=== PATIENT | female | born 1935 | race Caucasian/White ===

== ENCOUNTER 2016-04-07 12:05 | Inpatient (IN) | payer MEDICARE, OTHER ==
[~2016-04-07] VITALS: Ht 165.1 cm; Wt 81.6 kg
[~2016-04-07 12:05] MED LIST: ATIVAN0.5 MG ORAL; UNOBMED
[2016-04-07] MEDS ORDERED: JANUVIA25 MG ORAL (12:27)
[2016-04-07] MEDS ORDERED: NEURONTIN100 MG ORAL (12:27)
[2016-04-07] MEDS ORDERED: ASPIR 8181 MG ORAL (12:27)
[2016-04-07] MEDS ORDERED: DEPAKOTE250 MG PO (12:27)
[2016-04-07] MEDS ORDERED: AMARYL1 MG ORAL (12:27)
[2016-04-07] MEDS ORDERED: LOTENSIN HCT 21 EAC3 PO (12:27)
[2016-04-07] MEDS ORDERED: ARICEPT10 MG ORAL (12:27)
[2016-04-07] MEDS ORDERED: ASPERCREME 1035.4 GM TP (12:27)
[2016-04-07 12:36] VITALS: BP 132/37
[2016-04-07 12:44] LABS: EOSINOPHILS % (AUTO) 2.7 % (0.0-3.0); LYMPHOCYTES % (AUTO) 16.3 % (20.0-45.0); MEAN CORPUSCULAR HEMOGLOBIN 30.2 PG (27.0-31.0); MEAN CORPUSCULAR HGB CONC 32.5 G/DL (32.0-36.0); MEAN CORPUSCULAR VOLUME 93 FL (80-99); MEAN PLATELET VOLUME 6.8 FL (6.5-10.1); MONOCYTES % (AUTO) 8.2 % (1.0-10.0); NEUTROPHILS % (AUTO) 71.9 % (45.0-75.0); PLATELET COUNT 157 K/UL (150-450); RED BLOOD COUNT 3.78 M/UL (4.20-5.40); RED CELL DISTRIBUTION WIDTH 13.2 % (11.6-14.8)
[2016-04-07 13:03] LABS: TROPONIN I < 0.30 ng/mL (<=0.30)
[2016-04-07 13:04] LABS: ALANINE AMINOTRANSFERASE 13 U/L (3-33); ALBUMIN/GLOBULIN RATIO 1.1 (1.0-2.7); ANION GAP 13 (5-15); ASPARTATE AMINO TRANSFERASE 18 U/L (5-40); CALCIUM 9.8 mg/dL (8.6-10.2); CARBON DIOXIDE 24 mEQ/L (20-30); CHLORIDE 94 mEQ/L (98-107); CREATININE 1.8 mg/dL (0.5-0.9); HEMOLYSIS 12; SODIUM 131 mEQ/L (135-145); TOTAL PROTEIN 7.4 g/dL (6.6-8.7)
[2016-04-07 13:06] LABS: POTASSIUM 6.2 mEQ/L (3.4-4.9)
[2016-04-07 13:14] LABS: CKMB 3.7 ng/mL (< 3.8)
--- NOTE | 2016-04-07 13:29 | Diagnostic Imaging Report ---
Indication: Dyspnea Comparison: 05/09/15 A single view chest radiograph was obtained. Findings: The heart is enlarged. Lungs are clear. Bones are osteopenic. Impression: No acute disease
[2016-04-07] MEDS ORDERED: SYNTHROID25 MCG ORAL (13:30)
[2016-04-07] MEDS ORDERED: LANTUS SOL100 UNIT/1 SUBQ ×2 (13:30)
[2016-04-07] MEDS ORDERED: VITAMIN D400 INTLU ORAL (13:30)
[2016-04-07] MEDS ORDERED: MULTIVITAMINS1 EAC2 ORAL (13:30)
[2016-04-07] MEDS ORDERED: SIMVASTATIN20 MG ORAL (13:30)
[2016-04-07] MEDS ORDERED: NAMENDA5 MG ORAL (13:30)
[2016-04-07] MEDS ORDERED: ACTOS15 MG ORAL (13:30)
[2016-04-07] MEDS ORDERED: KENALOG 0.025%15 GM APPLIC (13:30)
[2016-04-07] MEDS ORDERED: BACTRIM DOUBLE S1 E1 ORAL (13:30)
[2016-04-07] MEDS ORDERED: Calcium Gluconate 1gm/10ml vial IVP ONE (14:00)
[2016-04-07] MEDS ORDERED: Sodium Polystyrene Sulfonate 15gm Powder ORAL ONE (14:00)
[2016-04-07 14:16] VITALS: BP 168/59
[2016-04-07 15:12] VITALS: BP 130/58
[2016-04-07 16:49] VITALS: BP 133/61
[2016-04-07 18:12] VITALS: BP 159/48
[2016-04-07 20:00] VITALS: BP 147/63
[2016-04-07] MEDS ORDERED: LORazepam 0.5mg tab ORAL PRN (21:45)
[2016-04-07] MEDS ORDERED: LORazepam 0.5mg tab ORAL ONE (21:45)
--- NOTE | 2016-04-07 22:25 | Emergency Room Report ---
History of Present Illness General Chief Complaint: Generalized Weakness Source: EMS (ALLEN HERNANDEZ P.A.) Present Illness HPI The patient is an 80-year-old female with a history of Diabetes and dementia BIBA for generalized weakness. [facility] and was said to have had a decreased appetite for the past week. The patient denies any other symptoms including N, V, F, chills, TAN, dizziness, blurred vision, CP, SOB, abd pain (ALLEN HERNANDEZ P.A.) Allergies: Coded Allergies: No Known Allergies (Unverified , 05/09/15) Patient History Past Medical History: see triage record, DM, dementia Pertinent Family History: none Reviewed Nursing Documentation: PMH: Agreed, PSxH: Agreed (ALLEN HERNANDEZ.Nicholas) Nursing Documentation-PMH Past Medical History: No History, Except For Hx Diabetes: Yes History Of Psychiatric Problem: Yes - DEMENTIA (ALLEN HERNANDEZ.AStone) Review of Systems All Other Systems: negative except mentioned in HPI (ALLEN HERNANDEZ P.AStone) Physical Exam Vital Signs Date Time Temp Pulse Resp B/P Pulse Ox O2 Delivery O2 Flow Rate FiO2 04/07/16 12:06 98.8 53 18 132/37 99 Room Air Sp02 EP Interpretation: reviewed, normal General Appearance: no apparent distress, alert, GCS 15, non-toxic Head: normocephalic, atraumatic Eyes: bilateral eye PERRL, bilateral eye normal inspection ENT: hearing grossly normal, normal pharynx, no angioedema, normal voice Neck: full range of motion, supple/symm/no masses Respiratory: chest non-tender, lungs clear, normal breath sounds, no wheezing, speaking full sentences Cardiovascular #1: regular rate, rhythm, no edema Gastrointestinal: normal bowel sounds, non tender, soft, no mass, non-distended , no guarding, no rebound Rectal: deferred Genitourinary: normal inspection, no CVA tenderness Musculoskeletal: normal inspection, back normal, non-tender Neurologic: alert, responsive, motor strength/tone normal, sensory intact, speech normal Psychiatric: mood/affect normal, no delusions (ALLEN HERNANDEZ P.AStone) Medical Decision Making PA Attestation Dr. Pretty is my supervising physician. Patient management was discussed with my supervising physician (ALLEN HERNANDEZ) Diagnostic Impression: Primary Impression: General weakness Additional Impressions: Hyperkalemia Dehydration ER Course The patient is an 80-year-old female with a history of Diabetes and dementia presenting for generalized weakness DDx: anxiety disorder, dehydration, PNA, Protein calorie malnutrition PE: Bradycardic and hypertensive. Afebrile. NAD Abdomen: Normal appearance. Non distended. No ecchymosis. Normal BS. Non TTP. No McBurney point tenderness. No guarding. No CVA tenderness Lungs CTA bilat Labs: CBC unremarkable. No leukocytosis CMP: Hyperkalemia at 6.2 Cardiac markers negative. Mild hyponatremia. BUN/CR elevated CXR unremarkable. EKG shows peaked T waves. Pt given treatment for hyperkalemia and is given IV fluids. The patient will be admitted in stable condition. Dr. Pretty has spoken with the admitting physician. Laboratory Tests Test 04/07/16 12:32 White Blood Count 8.0 K/UL (4.8-10.8) Red Blood Count 3.78 M/UL (4.20-5.40) L Hemoglobin 11.4 G/DL (12.0-16.0) L Hematocrit 35.1 % (37.0-47.0) L Mean Corpuscular Volume 93 FL (80-99) Mean Corpuscular Hemoglobin 30.2 PG (27.0-31.0) Mean Corpuscular Hemoglobin Concent 32.5 G/DL (32.0-36.0) Red Cell Distribution Width 13.2 % (11.6-14.8) Platelet Count 157 K/UL (150-450) Mean Platelet Volume 6.8 FL (6.5-10.1) Neutrophils (%) (Auto) 71.9 % (45.0-75.0) Lymphocytes (%) (Auto) 16.3 % (20.0-45.0) L Monocytes (%) (Auto) 8.2 % (1.0-10.0) Eosinophils (%) (Auto) 2.7 % (0.0-3.0) Basophils (%) (Auto) 1.0 % (0.0-2.0) Sodium Level 131 mEQ/L (135-145) L Potassium Level 6.2 mEQ/L (3.4-4.9) *H Chloride Level 94 mEQ/L (98-107) L Carbon Dioxide Level 24 mEQ/L (20-30) Anion Gap 13 (5-15) Blood Urea Nitrogen 31 mg/dL (7-23) H Creatinine 1.8 mg/dL (0.5-0.9) H Estimate Glomerular Filtration Rate mL/min (>60) Glucose Level 139 mg/dL (74-106) H Calcium Level 9.8 mg/dL (8.6-10.2) Total Bilirubin < 0.2 mg/dL (0.0-1.2) Aspartate Amino Transferase (AST) 18 U/L (5-40) Alanine Aminotransferase (ALT) 13 U/L (3-33) Alkaline Phosphatase 72 U/L (35-104) Total Creatine Kinase 97 U/L (26-140) Creatine Kinase MB 3.7 ng/mL (< 3.8) Creatine Kinase MB Relative Index 3.8 Troponin I < 0.30 ng/mL (<=0.30) Total Protein 7.4 g/dL (6.6-8.7) Albumin 3.9 g/dL (3.5-5.2) Globulin 3.5 g/dL Albumin/Globulin Ratio 1.1 (1.0-2.7) Lab Results Impression CBC unremarkable. No leukocytosis CMP: Hyperkalemia at 6.2 Mild hyponatremia. BUN/CR elevated (ALLEN HERNANDEZ P.A.) ER Course I agree with the above report. I directed treatment for hyperkalemia. I discussed the patient with Dr. Morris who agreed with admission. Scribe documentation reviewed by me and is accurate (Kenyon Pretty M.D.) EKG Diagnostic Results Rate: bradycardiac - 513 Rhythm: NSR ST Segments: other - Peaked T waves ASA given to the pt in ED: No PA Scribe Text EKG was reviewed and read with my supervising physician. No acute ST segment changes are seen. Bradycardia. Peaked T waves (ALLEN HERNANDEZ P.A.) Rhythm Strip Diag. Results EP Interpretation: yes Rhythm: NSR, no PVC's, no ectopy (Kenyon Pretty M.D.) Chest X-Ray Diagnostic Results EP Interpretation: Yes Findings: no consolidation, no effusion, no pneumothorax Number of Views: 1 PA Scribe Text I am acting as scribe for my supervising physician. My supervising physician's interpretation of the chest xrays are there is no consolidation, no effusion, no acute cardiopulmonary disease, no pneumothorax (ALLEN HERNANDEZ) Last Vital Signs Date Time Temp Pulse Resp B/P Pulse Ox O2 Delivery O2 Flow Rate FiO2 04/07/16 20:00 98.1 62 20 147/63 96 Room Air Status: improved (ALLEN HERNANDEZ) Status: improved (Kenyon Pretty M.D.) Disposition: ADMITTED INPATIENT Condition: Serious Scripts Ertapenem Sodium* (INVanz*) 1 Gm Vial.port 1 GM IVPB Q24H for 6 Days, #6 VIAL Prov: KASSY MORRIS 04/10/16 Heparin Sod (Porcine) (HEPARIN SODIUM*) 5 000/1 Ml Vial 5000 UNITS SUBQ EVERY 12 HOURS for 14 Days, #28 VIAL Prov: KASSY MORRIS 04/10/16 Amlodipine Besylate (Norvasc) 5 Mg Tablet 5 MG ORAL DAILY Y, #30 TAB Prov: KASSY MORRIS 04/10/16 Referrals: KASSY MORRIS (PCP) ALLEN HERNANDEZ Apr 07, 2016 22:24 Kenyon Pretty M.D. Apr 12, 2016 07:08
[2016-04-07] MEDS: Heparin 5000 units/ml inj SUBQ SCH (23:00)
--- NOTE | 2016-04-08 01:37 | History and Physical Report ---
DATE OF ADMISSION: 04/07/2016 CHIEF COMPLAINT: Generalized weakness. HISTORY OF PRESENT ILLNESS: This is an 80-year-old, obese female with history of diabetes and dementia, who was brought in by paramedics for complaint of progressive generalized weakness for the past two weeks. The patient has been more drowsy for the past two days as well. No fever or chills. No history of shortness of breath or chest pain. No history of abdominal pain, nausea or vomiting. PAST MEDICAL HISTORY: Includes history of diabetic neuropathy, diabetes mellitus type 2 on insulin , depression, morbid obesity, insomnia, and history of recurrent UTIs, Alzhiemer's disease, hypothyroidism, hyerlipidemia. PAST SURGICAL HISTORY: None. ALLERGIES: No known drug allergies. SOCIAL HISTORY: The patient lives at the [facility]. no history of smoking, drug, or alcohol use. REVIEW OF SYSTEMS: Negative except for history of present illness. PHYSICAL EXAMINATION: VITAL SIGNS: Temperature 98.8 degrees, pulse 63, respiration 18, blood pressure 132/37, and pulse oximetry 99% on room air. GENERAL APPEARANCE: No apparent distress. Alert . HEENT: Normocephalic and normochromic. Extraocular muscles intact. Throat is clear. No exudate. NECK: Supple. No lymphadenopathy. Thyroid normal size. RESPIRATORY: Clear to auscultation bilaterally. No wheezing. No rales. CARDIOVASCULAR: Regular rate and rhythm. Normal S1 and S2. No murmur. No gallop. GASTROINTESTINAL: Soft, nontender, and nondistended. Positive bowel sounds. Central obesity. No rebound or guarding. GENITOURINARY: No CVA tenderness. EXTREMITIES: No edema, cyanosis, or clubbing. NEUROLOGIC: Alert and responds to commands. No motor or sensory deficits. Slight weakness of the lower extremity. LABORATORY AND DIAGNOSTIC DATA: Includes WBC 8.2, hemoglobin 11.4, hematocrit 35.1, platelet count 157,000, neutrophils 71, lymphocytes 16%, monos 8%, eosinophils 2.7, and basophils 1. Sodium 131, potassium 6.2, chloride 94, bicarb 24, BUN 31, creatinine 1.8, glucose 139. Calcium 9.8. AST 18, ALT 13, and alkaline phosphatase 72. Total CK 97. Troponin less than 0.3. Albumin 3.9. Chest x-ray was negative. EKG showed peaked T-waves. IMPRESSION: This is an 80-year-old obese female, who will be admitted for dehydration and hyperkalemia management. She will be started on IV Fluid. The patient also has a generalized weakness and will require few weeks of physical therapy at the rehab before going back to the assisted living. While in the hospital, her Diabetes will be optimized as well. She will be restarted on home medications and will be followed up in the morning. Eduardo Morris M.D. DR: Hero JOB#: [id number] CC: ATUL
[2016-04-08 05:19] VITALS: BP 118/52
[2016-04-08] MEDS: Levothyroxine 25mcg tab ORAL SCH (06:14)
[2016-04-08] MEDS: sitaGLIPtin 50mg tab ORAL SCH (06:14)
[2016-04-08] MEDS: Levemir Flexpen SUBQ SCH (06:15)
[2016-04-08 07:44] LABS: BASOPHILS % (AUTO) 1.5 % (0.0-2.0); EOSINOPHILS % (AUTO) 3.4 % (0.0-3.0); LYMPHOCYTES % (AUTO) 20.6 % (20.0-45.0); MEAN CORPUSCULAR HEMOGLOBIN 30.6 PG (27.0-31.0); MEAN CORPUSCULAR HGB CONC 33.1 G/DL (32.0-36.0); MEAN CORPUSCULAR VOLUME 92 FL (80-99); MEAN PLATELET VOLUME 7.1 FL (6.5-10.1); MONOCYTES % (AUTO) 11.6 % (1.0-10.0); NEUTROPHILS % (AUTO) 62.9 % (45.0-75.0); PLATELET COUNT 147 K/UL (150-450); RED CELL DISTRIBUTION WIDTH 13.2 % (11.6-14.8); WHITE BLOOD COUNT 5.9 K/UL (4.8-10.8)
[2016-04-08 08:02] VITALS: BP 142/67
[2016-04-08 08:10] LABS: ANION GAP 12 (5-15); CALCIUM 9.4 mg/dL (8.6-10.2); CARBON DIOXIDE 21 mEQ/L (20-30); CHLORIDE 101 mEQ/L (98-107); CREATININE 1.6 mg/dL (0.5-0.9); HEMOLYSIS 5; POTASSIUM 5.2 mEQ/L (3.4-4.9); SODIUM 134 mEQ/L (135-145)
[2016-04-08] MEDS: Benazepril 10mg tab ORAL SCH (08:36)
[2016-04-08] MEDS: Aspirin EC 81mg tab ORAL SCH (08:39)
[2016-04-08] MEDS: Bactrim SS Tab ORAL SCH (08:39)
[2016-04-08] MEDS: Heparin 5000 units/ml inj SUBQ SCH ×2 (08:40→21:00)
[2016-04-08] MEDS ORDERED: Influenza Virus Vaccine 0.5ml IM ONE (09:00)
[2016-04-08] MEDS ORDERED: Glimepiride 1mg tab ORAL SCH (09:00)
[2016-04-08] MEDS ORDERED: Pneumococcal Vaccine 25mcg/0.5ml IM ONE (09:00)
--- NOTE | 2016-04-08 09:14 | General Progress Note ---
Assessment/Plan Status: stable Assessment/Plan 1. Dehydration - improving. cont IVF. 2. Hyperkalemia - Improving as well. 3. DM II - cont Insulin and decrease Amaryl 1 mg daily due to low glucose of 60 in am. 4. Generalized weakness - PT/OT eval and txt. will consider transfer to rehab in 2-3 days. 5. Hypothyroidism - cont synthroid. 6. Alzhiemer's dx - cont Namenda 28 mg daily 7. Hyperlipidemia - cont home med. Subjective Date patient seen: Apr 08, 2016 Time patient seen: 09:00 Constitutional: Reports: no symptoms HEENT: Reports: no symptoms Cardiovascular: Reports: no symptoms Respiratory: Reports: no symptoms Gastrointestinal/Abdominal: Reports: no symptoms Genitourinary: Reports: no symptoms Neurologic/Psychiatric: Reports: no symptoms Endocrine: Reports: no symptoms Hematologic/Lymphatic: Reports: no symptoms Allergies: Coded Allergies: No Known Allergies (Unverified , 05/09/15) Subjective Pt is resting in bed. no complaints today. awake. afebrile. No sob or chest pain. Objective Last 24 Hour Vital Signs Date Time Temp Pulse Resp B/P Pulse Ox O2 Delivery O2 Flow Rate FiO2 04/08/16 08:36 142/67 04/08/16 08:02 98.2 60 18 142/67 94 Room Air 04/08/16 05:19 97.9 52 20 118/52 98 Room Air 04/08/16 04:00 48 04/07/16 20:00 98.1 62 20 147/63 96 Room Air 04/07/16 19:15 98.9 64 16 159/48 100 Room Air 04/07/16 18:12 98.9 64 16 159/48 100 Room Air 04/07/16 16:49 98.8 61 18 133/61 100 Room Air 04/07/16 15:12 98.8 60 23 130/58 100 Room Air 04/07/16 14:16 98.8 54 15 168/59 100 Room Air 04/07/16 12:36 98.8 78 18 132/37 99 Room Air 04/07/16 12:06 98.8 53 18 132/37 99 Room Air Intake and Output 04/07/16 04/08/16 19:00 07:00 Intake Total 120 ml 450 ml Balance 120 ml 450 ml Intake Oral 120 ml 100 ml IV Total 350 ml # Voids 3 # Bowel Movements 2 Laboratory Tests 04/07/16 12:32: White Blood Count 8.0, Red Blood Count 3.78L, Hemoglobin 11.4L, Hematocrit 35.1L , Mean Corpuscular Volume 93, Mean Corpuscular Hemoglobin 30.2, Mean Corpuscular Hemoglobin Concent 32.5, Red Cell Distribution Width 13.2, Platelet Count 157, Mean Platelet Volume 6.8, Neutrophils (%) (Auto) 71.9, Lymphocytes (% ) (Auto) 16.3L, Monocytes (%) (Auto) 8.2, Eosinophils (%) (Auto) 2.7, Basophils (%) (Auto) 1.0, Sodium Level 131L, Potassium Level 6.2*H, Chloride Level 94L, Carbon Dioxide Level 24, Anion Gap 13, Blood Urea Nitrogen 31H, Creatinine 1.8H , Estimat Glomerular Filtration Rate , Glucose Level 139H, Calcium Level 9.8, Total Bilirubin < 0.2, Aspartate Amino Transf (AST/SGOT) 18, Alanine Aminotransferase (ALT/SGPT) 13, Alkaline Phosphatase 72, Total Creatine Kinase 97, Creatine Kinase MB 3.7, Creatine Kinase MB Relative Index 3.8, Troponin I < 0.30, Total Protein 7.4, Albumin 3.9, Globulin 3.5, Albumin/Globulin Ratio 1.1 04/08/16 07:00: White Blood Count 5.9, Red Blood Count 3.50L, Hemoglobin 10.7L, Hematocrit 32.3L , Mean Corpuscular Volume 92, Mean Corpuscular Hemoglobin 30.6, Mean Corpuscular Hemoglobin Concent 33.1, Red Cell Distribution Width 13.2, Platelet Count 147L, Mean Platelet Volume 7.1, Neutrophils (%) (Auto) 62.9, Lymphocytes ( %) (Auto) 20.6, Monocytes (%) (Auto) 11.6H, Eosinophils (%) (Auto) 3.4H, Basophils (%) (Auto) 1.5, Sodium Level 134L, Potassium Level 5.2H, Chloride Level 101, Carbon Dioxide Level 21, Anion Gap 12, Blood Urea Nitrogen 27H, Creatinine 1.6H, Estimat Glomerular Filtration Rate , Glucose Level 85, Calcium Level 9.4 Height (Feet): 5 Height (Inches): 5.00 Weight (Pounds): 180 General Appearance: no apparent distress, alert EENT: normal ENT inspection Neck: non-tender, normal alignment, supple Cardiovascular: normal peripheral pulses, normal rate, regular rhythm Respiratory/Chest: chest wall non-tender, lungs clear, normal breath sounds Abdomen: normal bowel sounds, non tender, soft Extremities: normal range of motion, non-tender Edema: no edema noted Arm (L), no edema noted Arm (R), no edema noted Leg (L), no edema noted Leg (R), no edema noted Pedal (L), no edema noted Pedal (R), no edema noted Generalized Neurologic: alert, oriented x 3, responsive Skin: warm/dry Lymphatic: normal anterior cervical (L), normal anterior cervical (R), normal axillary (L), normal axillary (R), normal inguinal (L), normal inguinal (R), normal other, normal posterior cervical (L), normal posterior cervical (R), normal submandibular (L), normal submandibular (R), normal supraclavicular (L), normal supraclavicular (R) KASSY LYLES Apr 08, 2016 09:14
[2016-04-08 11:43] VITALS: BP 144/81
[2016-04-08 14:45] LABS: APPEARANCE,URINE CLEAR; KETONES,URINE NEGATIVE (NEGATIVE); LEUKOCYTE ESTERASE ,URINE 1+ (NEGATIVE); NITRITE,URINE NEGATIVE (NEGATIVE); PH,URINE 7 (4.5-8.0); PROTEIN,URINE 3+ (NEGATIVE); UROBILINOGEN,URINE NORMAL MG/DL (0.0-1.0)
[2016-04-08 14:58] LABS: BACTERIA,URINE FEW /HPF; SQUAMOUS EPITHELIAL CELL,UR FEW /LPF (NONE/OCC)
--- NOTE | 2016-04-08 15:43 | Cardiac Electrophysiology PN ---
Subjective Subjective 177221 Objective Last 24 Hour Vital Signs Date Time Temp Pulse Resp B/P Pulse Ox O2 Delivery O2 Flow Rate FiO2 04/08/16 12:00 48 04/08/16 11:43 98.4 60 18 144/81 100 Room Air 04/08/16 09:37 98.2 04/08/16 08:36 142/67 04/08/16 08:02 98.2 60 18 142/67 94 Room Air 04/08/16 08:00 59 04/08/16 05:19 97.9 52 20 118/52 98 Room Air 04/08/16 04:00 48 04/07/16 20:00 98.1 62 20 147/63 96 Room Air 04/07/16 19:15 98.9 64 16 159/48 100 Room Air 04/07/16 18:12 98.9 64 16 159/48 100 Room Air 04/07/16 16:49 98.8 61 18 133/61 100 Room Air Intake and Output 04/07/16 04/08/16 19:00 07:00 Intake Total 120 ml 500 ml Balance 120 ml 500 ml Intake Oral 120 ml 100 ml IV Total 400 ml # Voids 3 # Bowel Movements 2 Laboratory Tests Test 04/08/16 07:00 04/08/16 14:15 White Blood Count 5.9 K/UL (4.8-10.8) Red Blood Count 3.50 M/UL (4.20-5.40) L Hemoglobin 10.7 G/DL (12.0-16.0) L Hematocrit 32.3 % (37.0-47.0) L Mean Corpuscular Volume 92 FL (80-99) Mean Corpuscular Hemoglobin 30.6 PG (27.0-31.0) Mean Corpuscular Hemoglobin Concent 33.1 G/DL (32.0-36.0) Red Cell Distribution Width 13.2 % (11.6-14.8) Platelet Count 147 K/UL (150-450) L Mean Platelet Volume 7.1 FL (6.5-10.1) Neutrophils (%) (Auto) 62.9 % (45.0-75.0) Lymphocytes (%) (Auto) 20.6 % (20.0-45.0) Monocytes (%) (Auto) 11.6 % (1.0-10.0) H Eosinophils (%) (Auto) 3.4 % (0.0-3.0) H Basophils (%) (Auto) 1.5 % (0.0-2.0) Sodium Level 134 mEQ/L (135-145) L Potassium Level 5.2 mEQ/L (3.4-4.9) H Chloride Level 101 mEQ/L (98-107) Carbon Dioxide Level 21 mEQ/L (20-30) Anion Gap 12 (5-15) Blood Urea Nitrogen 27 mg/dL (7-23) H Creatinine 1.6 mg/dL (0.5-0.9) H Estimat Glomerular Filtration Rate mL/min (>60) Glucose Level 85 mg/dL (74-106) Calcium Level 9.4 mg/dL (8.6-10.2) Urine Color Yellow Urine Appearance Clear Urine pH 7 (4.5-8.0) Urine Specific [place] 1.005 (1.005-1.035) Urine Protein 3+ (NEGATIVE) H Urine Glucose (UA) Negative (NEGATIVE) Urine Ketones Negative (NEGATIVE) Urine Occult Blood 4+ (NEGATIVE) H Urine Nitrite Negative (NEGATIVE) Urine Bilirubin Negative (NEGATIVE) Urine Urobilinogen Normal MG/DL (0.0-1.0) Urine Leukocyte Esterase 1+ (NEGATIVE) H Urine RBC 5-10 /HPF (0 - 2) H Urine WBC 2-4 /HPF (0 - 2) Urine Squamous Epithelial Cells Few /LPF (NONE/OCC) Urine Bacteria Few /HPF (NONE) PATRICK GRUBER Apr 08, 2016 15:43
[2016-04-08 16:00] VITALS: BP 171/61
[2016-04-08] MEDS ORDERED: LORazepam 0.5mg tab ORAL PRN (18:00)
[2016-04-08 20:00] VITALS: BP 129/46
[2016-04-08] MEDS ORDERED: Levemir Flexpen SUBQ SCH (21:00)
[2016-04-08] MEDS: Memantine 10mg tab ORAL SCH (21:53)
--- NOTE | 2016-04-08 22:47 | Consultation ---
DATE OF CONSULTATION: 04/08/2016 REFERRING PHYSICIAN: Eduardo Morris M.D. REASON FOR CONSULTATION: Bradycardia. HISTORY OF PRESENT ILLNESS: The patient is an 80-year-old, obese lady with history of diabetes and dementia who was brought in for evaluation for generalized weakness of two weeks' duration. The patient also has been more drowsy in the last few days. The patient was admitted to telemetry and was found to have bradycardia with heart rate mostly in the 50s. Cardiology consultation was obtained for further evaluation and management. Upon my evaluation, the patient complains of generalized weakness with no other specific symptoms. She denies syncope or chest pain or shortness of breath. REVIEW OF SYSTEMS: Review of systems was thoroughly performed and was negative other than what was mentioned in the history of present illness PAST MEDICAL HISTORY: 1. Hypertension. 2. Diabetes. 3. Diabetic neuropathy. 4. Hyperlipidemia. 5. Morbid obesity. 6. Urinary tract infection. 7. Dementia. 8. Hypothyroidism. PAST SURGICAL HISTORY: Negative. ALLERGIES: She has no known drug allergies. SOCIAL HISTORY: She lives in assisted living. Does not smoke or drink alcohol. PHYSICAL EXAMINATION: VITAL SIGNS: Blood pressure is 144/81, pulse is 48, respirations 18, and she is afebrile. HEAD AND NECK: No JVD or carotid bruit. LUNGS: Clear. CARDIOVASCULAR: Regular S1 and S2 with no gallop or murmur. ABDOMEN: Soft. EXTREMITIES: No pitting edema. LABORATORY DATA: Labs show white count of 5.9, hemoglobin 10.7, hematocrit 32, and platelet count of 147,000. Chemistry shows sodium 134; potassium was initially 6.2, with subsequent one today is 5.2; BUN of 27; creatinine 1.6; and glucose of 85. Troponin is negative. Her EKG showed sinus bradycardia at a rate of 59. ASSESSMENT AND PLAN: 1. Bradycardia. It could be secondary to the patient's hyperkalemia. There is no evidence of heart block. Heart rates ranging between 40s and high 50s, and the patient's blood pressure has remained stable. The patient is off any sort of jorge blocking agents. Continue to monitor the patient on telemetry. Her thyroid function test will be re-evaluated. We will also get an echocardiogram to rule out for ejection fraction and wall motion abnormality. 2. Diabetes, on Amaryl and Levemir insulin. 3. Hyperlipidemia, on Lipitor. 4. Dementia, on Namenda. 5. Obesity. Thank very much, Dr. Morris for allowing me to participate in the care of this patient. Please do not hesitate to contact me for any questions regarding my evaluation. Marco Chambers M.D. DR: GOSIA JOB#: [id number] CC:
[2016-04-09] VITALS (7 sets, daily range): BP systolic 130–163; BP diastolic 65–79
[2016-04-09] MEDS: sitaGLIPtin 50mg tab ORAL SCH (06:14)
[2016-04-09] MEDS: Levemir Flexpen SUBQ SCH (06:15)
[2016-04-09] MEDS ORDERED: Glimepiride 1mg tab ORAL SCH (06:30)
[2016-04-09] MEDS: Levothyroxine 25mcg tab ORAL SCH (06:58)
[2016-04-09 08:18] LABS: TROPONIN I < 0.30 ng/mL (<=0.30)
[2016-04-09 08:36] LABS: ANION GAP 13 (5-15); CALCIUM 9.7 mg/dL (8.6-10.2); CARBON DIOXIDE 24 mEQ/L (20-30); CHLORIDE 100 mEQ/L (98-107); CREATININE 1.7 mg/dL (0.5-0.9); HEMOLYSIS 3; POTASSIUM 4.9 mEQ/L (3.4-4.9); SODIUM 137 mEQ/L (135-145)
[2016-04-09 08:58] LABS: BASOPHILS % (AUTO) 1.2 % (0.0-2.0); EOSINOPHILS % (AUTO) 3.5 % (0.0-3.0); LYMPHOCYTES % (AUTO) 17.3 % (20.0-45.0); MEAN CORPUSCULAR HEMOGLOBIN 30.2 PG (27.0-31.0); MEAN CORPUSCULAR HGB CONC 31.9 G/DL (32.0-36.0); MEAN CORPUSCULAR VOLUME 95 FL (80-99); MEAN PLATELET VOLUME 6.3 FL (6.5-10.1); PLATELET COUNT 138 K/UL (150-450); RED CELL DISTRIBUTION WIDTH 12.9 % (11.6-14.8); WHITE BLOOD COUNT 7.1 K/UL (4.8-10.8)
[2016-04-09] MEDS: Heparin 5000 units/ml inj SUBQ SCH ×2 (09:00→20:39)
[2016-04-09 09:27] LABS: HEMOGLOBIN A1C 6.6 % (< 6.0)
[2016-04-09] MEDS: Bactrim SS Tab ORAL SCH (09:28)
[2016-04-09] MEDS: Benazepril 10mg tab ORAL SCH (09:28)
[2016-04-09] MEDS: Memantine 10mg tab ORAL SCH ×2 (09:29→20:39)
[2016-04-09] MEDS: Aspirin EC 81mg tab ORAL SCH (09:29)
--- NOTE | 2016-04-09 10:51 | Wound Care Consultation ---
Wound Assessment Wound Assessment #1: Wound Number: #1 Wound Present on Admission: Yes New Wound: No Status Change of Wound: No Wound Location Body Site Modif: left Wound Location Body Site: heel Wound Type: pressure ulcer Jose Test: Does not Jose Pressure Ulcer Stage: IV/unstageable Wound Thickness: Full Thickness Wound Length: 1.0 Wound Width: 1.0 Wound Depth: UTD Percent of Wound Black/Brown: 100 Wound Drainage Amount: None Wound Drainage Odor: None/Absent Tissue Surrounding Wound: Callus surrounding wound. dry ,thick. Wound General Appearance: Necrotic Wound Assessment #2: Wound Number: #2 Wound Present on Admission: Yes New Wound: No Status Change of Wound: No Wound Location Body Site Modif: right, dorsal - aspect of foot. Wound Location Body Site: foot Wound Type: scab Jose Test: Does not Jose Wound Thickness: Full Thickness Wound Length: 1.0 Wound Width: 1.0 Wound Depth: utd Percent of Wound Bed Yellow/Wh: 100 - dry yellow scab Wound Drainage Amount: None Wound Drainage Odor: None/Absent Tissue Surrounding Wound: Erythemic Wound General Appearance: Reddened, Necrotic - yellow dry scab present to wound bed. Wound Assessment #3: Wound Number: #3 Wound Present on Admission: Yes New Wound: No Status Change of Wound: No Wound Location Body Site Modif: right, lower Wound Location Body Site: leg Wound Type: other - scratches multiple. Jose Test: Does not Jose Wound Thickness: Partial Thickness Wound Drainage Amount: None Wound Drainage Odor: None/Absent Tissue Surrounding Wound: Erythemic Wound General Appearance: Reddened, Open to air Wound Assessment #4: Wound Number: #4 Wound Present on Admission: Yes New Wound: No Status Change of Wound: No Wound Location Body Site Modif: left, lower Wound Location Body Site: leg Wound Type: other - Multiple Scratches Jose Test: Does not Jose Wound Thickness: Partial Thickness Wound Drainage Amount: None Wound Drainage Odor: None/Absent Tissue Surrounding Wound: Erythemic Wound General Appearance: Reddened, Open to air Wound Comment #1 Left Heel Pressure Ulcer Stage IV/Unstageable. #2 Right Dorsal Aspect of foot yellow scab. #3 Right Lower Extremity multiple scratches. #4 Left Lower Extremity multiple scratches. Recommendation. -FOLLOW UP WITH PODIATRY FOR FOOT WOUNDS. -APPLY LOW AIR LOSS OVERLAY MATTRESS. -Local wound care as ordered. -Optimize nutrition. -Offload feet and heels. -Apply heel protectors. -Turn and reposition. -Keep clean and dry. -Keep skin moisturized. -Assess and follow up with MD for any changes of condition noted. ADARSH SAMANIEGO Apr 09, 2016 10:51
--- NOTE | 2016-04-09 12:51 | General Progress Note ---
Assessment/Plan Status: stable Assessment/Plan 1. UTI - start Rocephin 1 gm IV daily x 5 days. 2. Lt heal Pressure ulcer stage IV - cont. wound care. 3. Hyperkalemia - resolved. 4. DM II - cont Insulin and cont Actos and Amaryl 1 mg daily. 5. Generalized weakness - PT/OT eval and txt. will transfer to med-surg today. [facility]. 6. Hypothyroidism - cont synthroid. 7. Alzhiemer's dx - cont Namenda 28 mg daily 8. Hyperlipidemia - cont home med. Subjective Date patient seen: Apr 09, 2016 Time patient seen: 12:00 Constitutional: Reports: weakness HEENT: Reports: no symptoms Cardiovascular: Reports: no symptoms Respiratory: Reports: no symptoms Gastrointestinal/Abdominal: Reports: no symptoms Genitourinary: Reports: no symptoms Neurologic/Psychiatric: Reports: no symptoms Endocrine: Reports: no symptoms Hematologic/Lymphatic: Reports: no symptoms Allergies: Coded Allergies: No Known Allergies (Unverified , 05/09/15) Subjective Pt is resting in bed. no complaints today. awake. afebrile. No sob or chest pain. pt has a heal wound. Objective Last 24 Hour Vital Signs Date Time Temp Pulse Resp B/P Pulse Ox O2 Delivery O2 Flow Rate FiO2 04/09/16 12:00 98.2 54 17 147/65 99 Room Air 04/09/16 10:30 97.2 04/09/16 09:28 160/67 04/09/16 08:00 60 04/09/16 08:00 97.2 57 17 160/67 98 Room Air 04/09/16 04:15 97.7 52 20 130/65 100 Room Air 04/09/16 04:00 50 04/09/16 00:00 97.7 54 20 145/65 97 Room Air 04/09/16 00:00 52 04/08/16 20:00 37 04/08/16 20:00 97.8 53 16 129/46 97 Room Air 04/08/16 16:00 57 04/08/16 16:00 97.9 54 18 171/61 99 Room Air Intake and Output 04/08/16 04/09/16 19:00 07:00 Intake Total 760 ml 840 ml Balance 760 ml 840 ml Intake Oral 360 ml 240 ml IV Total 400 ml 600 ml # Voids 2 14 # Bowel Movements 1 Laboratory Tests 04/08/16 14:15: Urine Color Yellow, Urine Appearance Clear, Urine pH 7, Urine Specific [place] 1.005, Urine Protein 3+H, Urine Glucose (UA) Negative, Urine Ketones Negative, Urine Occult Blood 4+H, Urine Nitrite Negative, Urine Bilirubin Negative, Urine Urobilinogen Normal, Urine Leukocyte Esterase 1+H, Urine RBC 5-10H, Urine WBC 2- 4, Urine Squamous Epithelial Cells Few, Urine Bacteria Few 04/09/16 06:40: White Blood Count 7.1, Red Blood Count 3.60L, Hemoglobin 10.9L, Hematocrit 34.1L , Mean Corpuscular Volume 95, Mean Corpuscular Hemoglobin 30.2, Mean Corpuscular Hemoglobin Concent 31.9L, Red Cell Distribution Width 12.9, Platelet Count 138L, Mean Platelet Volume 6.3L, Neutrophils (%) (Auto) 68.0, Lymphocytes (%) (Auto) 17.3L, Monocytes (%) (Auto) 10.0, Eosinophils (%) (Auto) 3.5H, Basophils (%) (Auto) 1.2, Sodium Level 137, Potassium Level 4.9, Chloride Level 100, Carbon Dioxide Level 24, Anion Gap 13, Blood Urea Nitrogen 23, Creatinine 1.7H, Estimat Glomerular Filtration Rate , Glucose Level 95, Hemoglobin A1c 6.6H, Calcium Level 9.7, Troponin I < 0.30, Thyroid Stimulating Hormone (TSH) 5.270H, Free Thyroxine 1.26 Height (Feet): 5 Height (Inches): 5.00 Weight (Pounds): 180 General Appearance: no apparent distress, alert Neck: non-tender, normal alignment, supple Cardiovascular: normal peripheral pulses, normal rate, regular rhythm Respiratory/Chest: chest wall non-tender, lungs clear, no respiratory distress Abdomen: normal bowel sounds, non tender, soft Extremities: normal range of motion, non-tender Edema: no edema noted Arm (L), no edema noted Arm (R), no edema noted Leg (L), no edema noted Leg (R), no edema noted Pedal (L), no edema noted Pedal (R), no edema noted Generalized Neurologic: no motor/sensory deficits, alert, responsive Skin: warm/dry, other - Lt heal pressure ulcer Lymphatic: normal anterior cervical (L), normal anterior cervical (R), normal axillary (L), normal axillary (R), normal inguinal (L), normal inguinal (R), normal other, normal posterior cervical (L), normal posterior cervical (R), normal submandibular (L), normal submandibular (R), normal supraclavicular (L), normal supraclavicular (R) KASSY LYLES Apr 09, 2016 12:51
[2016-04-09] MEDS ORDERED: cefTRIAXone 1 GM in D5W 55 ML IVPB SCH (14:00)
--- NOTE | 2016-04-09 17:52 | Cardiac Electrophysiology PN ---
Assessment/Plan Assessment/Plan 1. Bradycardia. It could be secondary to the patient's hyperkalemia. There is no evidence of heart block. Resolved. Echo pending. 2. Diabetes, on Amaryl and Levemir insulin. 3. Hyperlipidemia, on Lipitor. 4. Dementia, on Namenda. 5. Obesity. Subjective Subjective Feeling better. Off tele now. No chest pain or SOB. Objective Last 24 Hour Vital Signs Date Time Temp Pulse Resp B/P Pulse Ox O2 Delivery O2 Flow Rate FiO2 04/09/16 15:14 97.7 57 14 139/70 97 Nasal Cannula 04/09/16 12:00 98.2 54 17 147/65 99 Room Air 04/09/16 12:00 61 04/09/16 10:30 97.2 04/09/16 09:28 160/67 04/09/16 08:00 60 04/09/16 08:00 97.2 57 17 160/67 98 Room Air 04/09/16 04:15 97.7 52 20 130/65 100 Room Air 04/09/16 04:00 50 04/09/16 00:00 97.7 54 20 145/65 97 Room Air 04/09/16 00:00 52 04/08/16 20:00 37 04/08/16 20:00 97.8 53 16 129/46 97 Room Air Intake and Output 04/08/16 04/09/16 19:00 07:00 Intake Total 760 ml 840 ml Balance 760 ml 840 ml Intake Oral 360 ml 240 ml IV Total 400 ml 600 ml # Voids 2 14 # Bowel Movements 1 Laboratory Tests Test 04/09/16 06:40 White Blood Count 7.1 K/UL (4.8-10.8) Red Blood Count 3.60 M/UL (4.20-5.40) L Hemoglobin 10.9 G/DL (12.0-16.0) L Hematocrit 34.1 % (37.0-47.0) L Mean Corpuscular Volume 95 FL (80-99) Mean Corpuscular Hemoglobin 30.2 PG (27.0-31.0) Mean Corpuscular Hemoglobin Concent 31.9 G/DL (32.0-36.0) L Red Cell Distribution Width 12.9 % (11.6-14.8) Platelet Count 138 K/UL (150-450) L Mean Platelet Volume 6.3 FL (6.5-10.1) L Neutrophils (%) (Auto) 68.0 % (45.0-75.0) Lymphocytes (%) (Auto) 17.3 % (20.0-45.0) L Monocytes (%) (Auto) 10.0 % (1.0-10.0) Eosinophils (%) (Auto) 3.5 % (0.0-3.0) H Basophils (%) (Auto) 1.2 % (0.0-2.0) Sodium Level 137 mEQ/L (135-145) Potassium Level 4.9 mEQ/L (3.4-4.9) Chloride Level 100 mEQ/L (98-107) Carbon Dioxide Level 24 mEQ/L (20-30) Anion Gap 13 (5-15) Blood Urea Nitrogen 23 mg/dL (7-23) Creatinine 1.7 mg/dL (0.5-0.9) H Estimat Glomerular Filtration Rate mL/min (>60) Glucose Level 95 mg/dL (74-106) Hemoglobin A1c 6.6 % (< 6.0) H Calcium Level 9.7 mg/dL (8.6-10.2) Troponin I < 0.30 ng/mL (<=0.30) Thyroid Stimulating Hormone (TSH) 5.270 uIU/mL (0.300-4.500) Free Thyroxine 1.26 ng/dL (0.86-1.85) Microbiology Date/Time Source Procedure Growth Status 04/07/16 19:00 Nasal Nares MRSA Culture - Final NO METHICILLIN RESISTANT STAPH AUREUS... Complete 04/08/16 14:15 Straight Cath Urine Culture - Preliminary Gram Negative Gian Resulted 04/07/16 19:00 Rectum VRE Culture - Final NO VANCOMYCIN RESISTANT ENTEROCOCCUS ... Complete Objective HEAD AND NECK: No JVD or carotid bruit. LUNGS: Clear. CARDIOVASCULAR: Regular S1 and S2 with no gallop or murmur. ABDOMEN: Soft. EXTREMITIES: No pitting edema. PATRICK GRUBER Apr 09, 2016 17:52
[2016-04-09] MEDS ORDERED: Heparin 5000 units/ml inj SUBQ SCH (21:00)
[2016-04-09] MEDS ORDERED: Levemir Flexpen SUBQ SCH ×2 (21:00)
[2016-04-09] MEDS ORDERED: Memantine 10mg tab ORAL SCH (21:00)
[2016-04-10] VITALS: BP 145/64
[2016-04-10 04:00] VITALS: BP 149/62
[2016-04-10] MEDS ORDERED: Levothyroxine 25mcg tab ORAL SCH ×2 (06:30)
[2016-04-10] MEDS ORDERED: sitaGLIPtin 50mg tab ORAL SCH ×2 (06:30)
[2016-04-10] MEDS ORDERED: Levemir Flexpen SUBQ SCH ×2 (06:30)
[2016-04-10] MEDS ORDERED: Glimepiride 1mg tab ORAL SCH ×2 (06:30)
[2016-04-10 08:07] LABS: BASOPHILS % (AUTO) 1.3 % (0.0-2.0); EOSINOPHILS % (AUTO) 2.5 % (0.0-3.0); LYMPHOCYTES % (AUTO) 15.3 % (20.0-45.0); MEAN CORPUSCULAR HGB CONC 31.5 G/DL (32.0-36.0); MEAN CORPUSCULAR VOLUME 95 FL (80-99); MEAN PLATELET VOLUME 6.6 FL (6.5-10.1); MONOCYTES % (AUTO) 10.7 % (1.0-10.0); NEUTROPHILS % (AUTO) 70.1 % (45.0-75.0); PLATELET COUNT 138 K/UL (150-450); RED BLOOD COUNT 3.42 M/UL (4.20-5.40); RED CELL DISTRIBUTION WIDTH 13.1 % (11.6-14.8); WHITE BLOOD COUNT 7.7 K/UL (4.8-10.8)
[2016-04-10 08:15] VITALS: BP 130/49
[2016-04-10] MEDS: Memantine 10mg tab ORAL SCH (08:16)
[2016-04-10] MEDS: Heparin 5000 units/ml inj SUBQ SCH (08:21)
[2016-04-10 08:42] LABS: ANION GAP 14 (5-15); CALCIUM 9.5 mg/dL (8.6-10.2); CARBON DIOXIDE 22 mEQ/L (20-30); CHLORIDE 100 mEQ/L (98-107); CREATININE 1.6 mg/dL (0.5-0.9); HEMOLYSIS 3; SODIUM 136 mEQ/L (135-145)
[2016-04-10] MEDS ORDERED: Bactrim SS Tab ORAL SCH ×2 (09:00)
[2016-04-10] MEDS ORDERED: Aspirin EC 81mg tab ORAL SCH ×2 (09:00)
[2016-04-10] MEDS ORDERED: Benazepril 10mg tab ORAL SCH ×2 (09:00)
--- NOTE | 2016-04-10 10:55 | Infectious Diseases Prog Note ---
Assessment/Plan Problems: (1) Urinary tract infection due to ESBL Klebsiella Assessment & Plan: will D/C ceftriaxon and bactrim , and start ertapenem for 7 days, I recommend fosfomycin 3 gm po q 9 days as a prophylaxis for her recurrent UTI , and stop bactrim , since she has CKD (2) Dehydration Assessment & Plan: continue IVF for hydration, encourage oral hydration too (3) Hyperkalemia Assessment & Plan: suspect dehydration related, continue hydration, monitor potassium level (4) General weakness Assessment & Plan: could be due to UTI, she will be treated with ertapenem for 7 days, recommend PT/OT (5) Wound of skin Assessment & Plan: not infected, keep off loading, and continue local wound care Subjective Allergies: Coded Allergies: No Known Allergies (Unverified , 05/09/15) Objective Vital Signs Last 24 Hour Vital Signs Date Time Temp Pulse Resp B/P Pulse Ox O2 Delivery O2 Flow Rate FiO2 04/10/16 09:11 98.8 04/10/16 08:15 98.8 65 20 130/49 97 Room Air 04/10/16 08:15 130/65 04/10/16 08:14 65 132/49 04/10/16 04:00 99.1 65 20 149/62 96 Room Air 04/10/16 00:00 98.1 60 20 145/64 94 Room Air 04/09/16 22:30 60 163/79 04/09/16 21:45 98.2 60 18 163/79 92 Room Air 04/09/16 20:00 98.2 60 20 163/79 90 Room Air 04/09/16 15:14 97.7 57 14 139/70 97 Nasal Cannula 04/09/16 12:00 98.2 54 17 147/65 99 Room Air 04/09/16 12:00 61 Height (Feet): 5 Height (Inches): 5.00 Weight (Pounds): 180 Microbiology Date/Time Source Procedure Growth Status 04/07/16 19:00 Nasal Nares MRSA Culture - Final NO METHICILLIN RESISTANT STAPH AUREUS... Complete 04/08/16 14:15 Straight Cath Urine Culture - Final Klebsiella Pneumoniae Esbl Complete 04/07/16 19:00 Rectum VRE Culture - Final NO VANCOMYCIN RESISTANT ENTEROCOCCUS ... Complete Laboratory Tests Test 04/10/16 05:20 White Blood Count 7.7 K/UL (4.8-10.8) Red Blood Count 3.42 M/UL (4.20-5.40) L Hemoglobin 10.3 G/DL (12.0-16.0) L Hematocrit 32.6 % (37.0-47.0) L Mean Corpuscular Volume 95 FL (80-99) Mean Corpuscular Hemoglobin 30.0 PG (27.0-31.0) Mean Corpuscular Hemoglobin Concent 31.5 G/DL (32.0-36.0) L Red Cell Distribution Width 13.1 % (11.6-14.8) Platelet Count 138 K/UL (150-450) L Mean Platelet Volume 6.6 FL (6.5-10.1) Neutrophils (%) (Auto) 70.1 % (45.0-75.0) Lymphocytes (%) (Auto) 15.3 % (20.0-45.0) L Monocytes (%) (Auto) 10.7 % (1.0-10.0) H Eosinophils (%) (Auto) 2.5 % (0.0-3.0) Basophils (%) (Auto) 1.3 % (0.0-2.0) Sodium Level 136 mEQ/L (135-145) Potassium Level 5.0 mEQ/L (3.4-4.9) H Chloride Level 100 mEQ/L (98-107) Carbon Dioxide Level 22 mEQ/L (20-30) Anion Gap 14 (5-15) Blood Urea Nitrogen 17 mg/dL (7-23) Creatinine 1.6 mg/dL (0.5-0.9) H Estimat Glomerular Filtration Rate mL/min (>60) Glucose Level 101 mg/dL (74-106) Calcium Level 9.5 mg/dL (8.6-10.2) Current Medications Medications (Trade) Dose Ordered Sig/Allen Route PRN Reason Start Time Stop Time Status Last Admin Dose Admin Amlodipine Besylate (Norvasc) 5 mg DAILY PRN ORAL sbp>160 04/09/16 22:30 05/09/16 22:29 04/10/16 08:14 Aspirin (Ecotrin) 81 mg DAILY ORAL 04/10/16 09:00 05/10/16 08:59 04/10/16 08:11 Atorvastatin Calcium (Lipitor) 10 mg BEDTIME ORAL 04/09/16 21:00 05/09/16 20:59 04/10/16 08:12 Benazepril HCl (Lotensin) 20 mg DAILY ORAL 04/10/16 09:00 05/10/16 08:59 04/10/16 08:15 Ceftriaxone Sodium/Dextrose (Rocephin/D5W) 55 ml @ 110 mls/hr Q24H IVPB 04/10/16 14:00 04/17/16 13:59 Divalproex Sodium (Depakote) 250 mg BEDTIME ORAL 04/09/16 21:00 05/09/16 20:59 04/09/16 20:39 Gabapentin (Neurontin) 100 mg DAILY ORAL 04/10/16 09:00 05/10/16 08:59 04/10/16 08:11 Heparin Sodium (Porcine) (Heparin 5000 units/ml) 5,000 units EVERY 12 HOURS SUBQ 04/09/16 21:00 05/09/16 20:59 Hydrochlorothiazide (Hydrodiuril) 25 mg DAILY ORAL 04/10/16 09:00 05/10/16 08:59 Insulin Detemir (Levemir) 15 units ACBREAKFAST SUBQ 04/10/16 06:30 05/10/16 06:29 04/10/16 07:07 Insulin Detemir (Levemir) 24 units BEDTIME SUBQ 04/09/16 21:00 05/09/16 20:59 04/09/16 21:01 Levothyroxine Sodium (Synthroid) 25 mcg ACBREAKFAST ORAL 04/10/16 06:30 05/10/16 06:29 04/10/16 06:40 Memantine (Namenda) 10 mg Q12HR ORAL 04/09/16 21:00 05/09/16 20:59 04/09/16 20:39 Multivitamins (Multivitamins) 1 tab DAILY ORAL 04/10/16 09:00 05/10/16 08:59 04/10/16 08:12 Pioglitazone HCl (Actos) 15 mg DAILY ORAL 04/10/16 09:00 05/10/16 08:59 Sitagliptin Phosphate (Januvia) 25 mg ACBREAKFAST ORAL 04/10/16 06:30 05/10/16 06:29 Trimethoprim/ Sulfamethoxazole (Bactrim Single Strength) 1 ea DAILY ORAL 04/10/16 09:00 04/17/16 08:59 Bossman Caruso M.D. Apr 10, 2016 10:55
[2016-04-10] MEDS ORDERED: Ertapenem 1 GM in NS 55 ML IVPB SCH (11:30)
[2016-04-10] MEDS ORDERED: Ertapenem 1 GM in NS 110 ML IVPB SCH (11:30)
--- NOTE | 2016-04-10 11:45 | Cardiology Report ---
APPROVED REPORT EXAM: Two-dimensional and M-mode echocardiogram with Doppler and color Doppler. INDICATION Chest Pain M-Mode DIMENSIONS IVSd1.1 (0.7-1.1cm)Left Atrium (MM)3.4 (1.6-4.0cm) LVDd4.8 (3.5-5.6cm)Aortic Root2.0 (2.0-3.7cm) PWd.8 (0.7-1.1cm) IVSs2.4 cm LVDs3.2 (2.5-4.0cm) PWs1.2 cm Technically difficult and limited study due to poor acoustic windows. Normal left ventricular chamber size, systolic function and wall motion to extent visualized. Left ventricular ejection fraction estimated to be 55-60 %. No evidence of ventricular hypertrophy. No evidence of pericardial effusion. All other cardiac chamber sizes are within normal limits. Mild focal aortic valve sclerosis with adequate cusp excursion. Mildly thickened mitral valve leaflets with normal excursion. Mild mitral annulus and aortic root calcification. Pulmonic valve not well visualized. Normal tricuspid valve structure. IVC at normal size with physiologic collapse. A color flow and spectral Doppler study was performed and revealed: No aortic regurgitation. Trace mitral regurgitation. Mitral diastolic velocities suggest reduced left ventricular relaxation (Grade I). Trace tricuspid regurgitation. Tricuspid systolic velocities suggests peak right ventricular systolic pressure of 24 mmHg. Trace pulmonic regurgitation.
--- NOTE | 2016-04-10 11:46 | Cardiology Report ---
APPROVED REPORT EKG Measurement Heart [id number] Sinus bradycardia Left axis deviation LAFB Cannot rule out posterior wall infarct, age indeterminate Abnormal ECG
[2016-04-10 11:48] VITALS: BP 148/68
--- NOTE | 2016-04-10 13:15 | General Progress Note ---
Assessment/Plan Status: stable Assessment/Plan 1. ESBL UTI - D/C Rocephin 1 gm IV and start ertapenam 1 gm IV daily x 7 days. she will get 6 more days of IV abx at the rehab. 2. Lt heal Pressure ulcer - cont wound care. 3. Hyperkalemia - will monitor K level at the rehab. 4. DM II - cont Insulin and cont Actos and hold januvia 50 mg and D/C Amaryl 1 mg daily due to hypoglycemia. 5. Generalized weakness - PT/OT eval and txt. [facility] 6. Hypothyroidism - cont synthroid. 7. Alzhiemer's dx - cont Namenda 28 mg daily 8. Hyperlipidemia - cont home med. Subjective Date patient seen: Apr 10, 2016 Time patient seen: 10:00 Constitutional: Reports: no symptoms HEENT: Reports: no symptoms Cardiovascular: Reports: no symptoms Respiratory: Reports: no symptoms Gastrointestinal/Abdominal: Reports: no symptoms Genitourinary: Reports: no symptoms Neurologic/Psychiatric: Reports: no symptoms Endocrine: Reports: no symptoms Hematologic/Lymphatic: Reports: no symptoms Allergies: Coded Allergies: No Known Allergies (Unverified , 05/09/15) Subjective Pt is resting in bed. no complaints today. awake. afebrile. No sob or chest pain. She has ESBL UTI. Objective Last 24 Hour Vital Signs Date Time Temp Pulse Resp B/P Pulse Ox O2 Delivery O2 Flow Rate FiO2 04/10/16 11:48 97.6 64 20 148/68 96 Room Air 04/10/16 09:11 98.8 04/10/16 08:15 98.8 65 20 130/49 97 Room Air 04/10/16 08:15 130/65 04/10/16 08:14 65 132/49 04/10/16 04:00 99.1 65 20 149/62 96 Room Air 04/10/16 00:00 98.1 60 20 145/64 94 Room Air 04/09/16 22:30 60 163/79 04/09/16 21:45 98.2 60 18 163/79 92 Room Air 04/09/16 20:00 98.2 60 20 163/79 90 Room Air 04/09/16 15:14 97.7 57 14 139/70 97 Nasal Cannula Intake and Output 04/09/16 04/10/16 18:59 06:59 Intake Total 765 ml Balance 765 ml Intake Oral 360 ml IV Total 405 ml # Voids 4 3 Laboratory Tests 04/10/16 05:20: White Blood Count 7.7, Red Blood Count 3.42L, Hemoglobin 10.3L, Hematocrit 32.6L , Mean Corpuscular Volume 95, Mean Corpuscular Hemoglobin 30.0, Mean Corpuscular Hemoglobin Concent 31.5L, Red Cell Distribution Width 13.1, Platelet Count 138L, Mean Platelet Volume 6.6, Neutrophils (%) (Auto) 70.1, Lymphocytes (%) (Auto) 15.3L, Monocytes (%) (Auto) 10.7H, Eosinophils (%) (Auto ) 2.5, Basophils (%) (Auto) 1.3, Sodium Level 136, Potassium Level 5.0H, Chloride Level 100, Carbon Dioxide Level 22, Anion Gap 14, Blood Urea Nitrogen 17, Creatinine 1.6H, Estimat Glomerular Filtration Rate , Glucose Level 101, Calcium Level 9.5 Height (Feet): 5 Height (Inches): 5.00 Weight (Pounds): 180 General Appearance: no apparent distress, alert Neck: non-tender, normal alignment, supple Cardiovascular: normal peripheral pulses, normal rate, regular rhythm Respiratory/Chest: chest wall non-tender, lungs clear, normal breath sounds Abdomen: normal bowel sounds, non tender, soft Extremities: normal range of motion, non-tender Edema: no edema noted Arm (L), no edema noted Arm (R), no edema noted Leg (L), no edema noted Leg (R), no edema noted Pedal (L), no edema noted Pedal (R), no edema noted Generalized Neurologic: alert, responsive Skin: warm/dry Lymphatic: normal anterior cervical (L), normal anterior cervical (R), normal axillary (L), normal axillary (R), normal inguinal (L), normal inguinal (R), normal other, normal posterior cervical (L), normal posterior cervical (R), normal submandibular (L), normal submandibular (R), normal supraclavicular (L), normal supraclavicular (R) KASSY LYLES Apr 10, 2016 13:15
[2016-04-10] MEDS ORDERED: HEPARIN SO5000 UNIT2 SUBQ ×2 (13:23→13:32)
[2016-04-10] MEDS ORDERED: INVANZ1 GM IVPB (13:23)
[2016-04-10] MEDS ORDERED: NORVASC5 MG ORAL (13:23)
[2016-04-10] MEDS ORDERED: cefTRIAXone 1 GM in D5W 55 ML IVPB SCH ×4 (14:00)
[2016-04-10 15:53] VITALS: BP 158/71
[2016-04-10 19:24] VITALS: BP 157/77
--- NOTE | 2016-04-11 09:07 | Consultation ---
DATE OF CONSULTATION: INFECTIOUS DISEASE CONSULTATION: REASON FOR CONSULTATION: Urinary tract infection with ESBL producing Klebsiella pneumonia, recommendation for antibiotics therapy, and to prevent recurrent UTI. REQUESTING PHYSICIAN: Eduardo Morris M.D. HISTORY OF PRESENT ILLNESS: The patient is an 80-year-old female with history of dementia, diabetes, and recurrent UTI, was brought in to [facility] emergency room for progressive weakness and drowsiness. The patient was found to have evidence of urinary tract infections. She was started on ceftriaxone empiric treatment and her urine culture later grew ESBL producing Klebsiella pneumoniae. So, I was consulted by the primary provider for antibiotics recommendation and management. As of note, the patient is demented cannot provide any history. History was obtained from the medical record. PAST MEDICAL HISTORY: Significant for diabetes type 2 insulin dependent complicated with neuropathy, depression, morbid obesity, insomnia, recurrent UTI, Alzheimer, hypothyroidism, and hyperlipidemia. PAST SURGICAL HISTORY: Negative. MEDICATIONS: The patient currently on ceftriaxone 1 g IV q. 24 hours. She is also on Bactrim one tablet daily for the rest of her medications and decided to the [facility]. ALLERGIES: She has no known drug allergy. SOCIAL HISTORY: The patient lives in assisted living at [facility]. No history of tobacco, drugs, or alcohol. FAMILY HISTORY: Unable to obtain at this point. REVIEW OF SYSTEMS: Unable to obtain at this point. LABORATORY DATA: Today showed white count of 7.7, hemoglobin of 10.3, hematocrit 32.6, and platelet count of 138. BUN of 17, creatinine 1.7. Hemoglobin A1c of 6.6. Urinalysis on admission showed +1 leukocyte esterase, WBC 2 to 4 with few bacteria. Microbiology, urine culture on 04/08/2016, grew Klebsiella pneumoniae ESBL producing sensitive only to ertapenem, imipenem, and amikacin. Imaging, chest x-ray shows no acute disease. PHYSICAL EXAMINATION: VITAL SIGNS: Temperature 98.8 degrees, pulse 65, respirations 20, blood pressure 130/49, saturation 97% on room air. GENERAL: The patient is obese female lying in bed, demented, alert, not in distress. HEENT: Normocephalic and atraumatic. Pupils both reactive to light. Normal oral mucosa. No exudate. NECK: Supple. No lymphadenopathy. CARDIOVASCULAR: Regular rate and rhythm. S1 and S2 normal. No murmur or gallop. LUNGS: Clear to auscultation. Diminished breathing sounds at the bases. No wheezing or rales. ABDOMEN: Soft, obese, nontender, and nondistended. Positive bowel sounds. No hepatosplenomegaly. No ascites. EXTREMITIES: No edema or cyanosis. No clubbing. SKIN: The patient has multiple wounds mainly at the heel and some of them had eschar. No evidence of drainage, skin erythema, or cellulitis. ASSESSMENT AND PLAN: 1. Urinary tract infection due to extended-spectrum beta-lactamase Klebsiella pneumonia. We will discontinue ceftriaxone and Bactrim and start the patient on ertapenem intravenous treatment for seven days. I recommend fosfomycin 3 g orally every 9 days as a prophylaxis for her recurrent urinary tract infection in the future since Bactrim does not cover extended-spectrum beta-lactamases producing organism and she has renal failure and this may increase her nephrotoxicity , so would avoid Bactrim completely. 2. Dehydration. Continue intravenous fluids. Encourage hydration orally. 3. Hyperkalemia suspect due to dehydration. Continue hydration and monitor potassium levels. 4. Generalized weakness, could be due to urinary tract infection. The patient be treated with ertapenem for seven days. Recommend PT and OT. 5. Skin wounds that look infected. Keep offloading and continue local wound care. Thank you for the consult. Bossman Caruso M.D. DR: Mckenzie JOB#: [id number] CC: ATUL
--- NOTE | 2016-04-11 09:14 | Discharge Summary ---
Discharge Summary Hospital Course Date of Admission Apr 07, 2016 at 13:44 Date of Discharge Apr 10, 2016 at 19:25 Admitting Diagnosis generalized weakness HPI Coleen Lawrence is a 80 year old female who was admitted on Apr 07, 2016 at 13: 44 for Generalized Weakness Hospital Course dc summary dictated # [id number] Discharge Medications New Medications: Ertapenem Sodium* (INVanz*) 1 Gm Vial.port 1 GM IVPB Q24H for 6 Days, #6 VIAL Amlodipine Besylate (Norvasc) 5 Mg Tablet 5 MG ORAL DAILY PRN, #30 TAB Heparin Sod (Porcine) (Heparin Sodium*) 5 000/1 Ml Vial 5000 UNITS SUBQ EVERY 12 HOURS for 14 Days, #28 VIAL Continued Medications: Aspirin* (Aspir 81*) 81 Mg Tablet.dr 81 MG ORAL DAILY, TAB Divalproex Sodium* (Depakote*) 250 Mg Tablet.dr 250 MG PO BEDTIME, TAB Donepezil Hcl* (Aricept*) 10 Mg Tablet 10 MG ORAL DAILY, TAB Gabapentin* (Neurontin*) 100 Mg Capsule 100 MG ORAL DAILY, #15 CAP 0 Refills Insulin Glargine (Lantus) 100 Unit/1 Ml Insuln.pen 15 SUBQ BEFORE BREAKFAST, #1 EA 0 Refills Insulin Glargine (Lantus) 100 Unit/1 Ml Insuln.pen 24 SUBQ BEDTIME, #1 EA 0 Refills Levothyroxine Sodium* (Synthroid*) 25 Mcg Tablet 25 MCG ORAL DAILY, TAB Take in the morning on an empty stomach, at least 30 minutes before food. Lorazepam* (Ativan*) 0.5 Mg Tablet 0.5 MG ORAL THREE TIMES A DAY, #10 TAB Try to take less than 3 times a week. Memantine Hcl* (Namenda*) 5 Mg Tablet 28 MG ORAL DAILY, TAB Multivitamins* (Multivitamins*) 1 Each Tablet 1 TAB ORAL DAILY, TAB 0 Refills Pioglitazone Hcl* (Actos*) 15 Mg Tablet 15 MG ORAL DAILY, TAB Simvastatin (Zocor) 20 Mg Tablet 20 MG ORAL BEDTIME, TAB Sitagliptin* (Januvia*) 25 Mg Tablet 25 MG ORAL DAILY, TAB Discontinued Medications: Benazepril/Hydrochlorothiazide (Lotensin Hct 20-25 mg Tablet) 1 Each Tablet 1 EACH PO, TAB Glimepiride* (Amaryl*) 1 Mg Tablet 2 MG ORAL DAILY, TAB Heparin Sod (Porcine) (Heparin Sodium*) 5 000/1 Ml Vial 5000 UNITS SUBQ EVERY 12 HOURS, VIAL Trimethoprim/Sulfamethoxazole (Bactrim 400-80 mg Tablet) 1 Each Tablet 1 TAB ORAL DAILY, TAB Discharge Condition Upon Discharge: improving Discharge Disposition Patient was discharged to SNF/Subacute Facility(03) Discharge Diagnoses: Kaleb (Zahira)Akosua NP Apr 11, 2016 09:14
--- NOTE | 2016-04-11 19:12 | Cardiology Report ---
APPROVED REPORT EKG Measurement Heart [id number] IL [id number] Sinus bradycardia Left axis deviation Low voltage QRS Abnormal ECG
--- NOTE | 2016-04-11 22:37 | Discharge Summary ---
DATE OF ADMISSION: 04/07/2016 DATE OF DISCHARGE: 04/10/2016 HOSPITAL COURSE: This is an 80-year-old obese female with a history of diabetes and dementia, who was brought in for complaint of progressive generalized weakness from assisted living. The patient's workup showed she has a ESBL UTI and was started on Invanz intravenous for 7 days. ID was consulted during the admission as well. She also had dehydration and hyperkalemia. The patient was hydrated with intravenous fluids and her potassium was improved. The patient's blood pressure medication will be changed from benazepril and hydrochlorothiazide to Norvasc due to hyperkalemia and dehydration. The patient also had wound on her heels and she has a wound care while in the hospital and will have a followup wound care at the rehabilitation. The patient also had a few episodes of hypoglycemia and her amaryl was discontinued. she will continue her Lantus, Actos, and Januvia 50 mg at the rehabilitation. DISCHARGE DIAGNOSES: Include 1. ESBL urinary tract infection. 2. Left heel pressure ulcer. 3. Hyperkalemia, resolved. 4. Dehydration, resolved. 5. Diabetes mellitus type 2, on insulin. 6. Generalized weakness. 7. Hypothyroidism. 8. Alzheimer's disease. 9. Hyperlipidemia. 10. Morbid obesity. DISCHARGE MEDICATIONS: Include 1. Norvasc 5 mg 1 daily. 2. Invanz 1 g intravenous daily for 6 days and then aspirin 81 mg daily. 3. Depakote 250 mg at bedtime. 4. Aricept 10 mg daily. 5. Neurontin 100 mg daily. 6. Lantus 15 mg subcutaneous before breakfast and 24 units subcutaneous at bedtime. 7. Synthroid 25 mcg daily. 8. Lorazepam 0.5 mg 3 times a day as needed. 9. Namenda 28 mg daily. 10. Multivitamin 1 tab daily. 11. Actos 15 mg daily. 12. Simvastatin 20 mg one at bedtime. 13. Januvia 25 mg 1 daily. DISPOSITION: The patient will be discharged to [facility] and I will be following the patient in 2 to 3 days at the rehabilitation. Eduardo Morris M.D. DR: Isauro JOB#: [id number] CC: ATUL
--- NOTE | 2016-04-12 02:18 | Discharge Summary 2 SIG ---
DATE OF ADMISSION: 04/07/2016 DATE OF DISCHARGE: 04/10/2016 ADMITTING PHYSICIAN: Eduardo Morris M.D. REASON FOR ADMISSION: 80-year-old female was brought by ambulance from the custodial facility for generalized weakness and decrease in appetite. The patient with multiple chronic problems including diabetes, dementia, hypertension, and hyperlipidemia. Laboratory work in the emergency room revealed hyperkalemia, potassium was 6.2. Chest x-ray was negative for any acute cardiopulmonary disease. EKG shows bradycardic with heart rate of 51 with sinus bradycardia and peaked T-waves as well as the left anterior fascicular block and renal parameters revealed creatinine of 1.8 and BUN of 31. Troponin was negative. No leukocytosis. The patient was admitted for further management to telemetry floor. ADMITTING DIAGNOSES: Includes: 1. Dehydration. 2. Hyperkalemia. 3. Bradycardia. 4. Generalized weakness. 5. Acute kidney injury HOSPITAL STAY: The patient was admitted to telemetry floor. Cardiology consult was requested. The potassium was treated and was stable at 5.0- prior to discharge. Telemetry showed sinus bradycardia, which eventually resolved. Per Cardiology, no heart block. Bradycardia possibly secondary to hyperkalemia. Echocardiogram revealed preserved ejection fraction of 55% to 60% and right ventricular systolic pressure of 24. Chest x-ray was negative for any acute cardiopulmonary disease. Bradycardia eventually resolved as hyperkalemia resolved. No further issues. Continue statin. Blood pressure was managed with the current antihypertensive regimen and was stable. Urine culture revealed Klebsiella, ESBL, ID consult was requested. The patient was started on IV antibiotics and will be continued at the custodial facility. The patient was noted to have left heel pressure ulcer, present on admission. Wound care nurse consult was requested. Wound care to be continued at the custodial [facility] as per wound care nurse recommendation. The patient has history of diabetes mellitus type 2. The patient was continued on Actos, Januvia was hold, and sliding scale of insulin as needed. [id number], at goal. Generalized weakness, likely secondary to urinary tract infection and underlying infectious process. The patient was working with physical and occupational therapists. Continue IV antibiotic as underlined above. The patient with a history of Alzheimer disease , continue with Namenda. The patient has a history of hypothyroidism, continue Synthroid and check thyroid panel at the custodial facility. DISCHARGE DIAGNOSES: 1. Bradycardia, resolved (likely secondary to hyperkalemia). 2. Hyperkalemia, resolved. 3. Dehydration, improved. 4. Urinary tract infection, Klebsiella, extended-spectrum beta-lactamases. 5. Left heel pressure ulcer, present on admission. 6. Hypothyroidism. 7. Alzheimer dementia. 8. Hyperlipidemia. DISCHARGE MEDICATIONS: See medication reconciliation list. DISCHARGE INSTRUCTIONS: The patient was discharged to custodial facility. Continue IV antibiotic and wound care as outlined. Closely monitor heart rate and blood sugar as well as the electrolytes. Eduardo Morris M.D. I have been assigned to dictate discharge summary on this account and I was not involved in the patient's management. [facility] N.PStone DR: PATTI JOB#: [id number] CC: ATUL
--- NOTE | 2016-04-14 12:44 | Diagnostic Imaging Report ---
APPROVED REPORT CPT Code: 38928 Vascular Symptoms Dizziness and Vertigo Doppler Spectral Velocity Analysis RightLeft RIGHT SIDE: CCA - Imaging reveals no significant plaque within the extracranial carotid arteries. The Doppler spectral flow analysis is within normal limits throughout the extracranial carotid arteries. VERTEBRAL - The vertebral artery is within normal limits. LEFT SIDE: CCA - Imaging reveals no significant plaque in the common carotid artery. ICA arteries. The Doppler signal indicates the degree of stenosis is mild in the internal carotid (30-40%) and minimal (10%) in the external carotid arteries. VERTEBRAL - The vertebral artery was not visualised.
== END 2016-04-10 19:25 | DRG 689 ==
LOC: EDBD 12:05 → EMR 12:37 → EDBEDREQ 13:16 → 2E 13:44 → EDBEDREQSVC 14:05 → EDBEDREQ 14:23 → 2E 04-08 06:09 → 4E 04-09 14:22
DX: N39.0 Urinary tract infection, site not specified (principal); L89.624 Pressure ulcer of left heel, stage 4; E11.40 Type 2 diabetes mellitus with diabetic neuropathy, unspecified; E11.649 Type 2 diabetes mellitus with hypoglycemia without coma; E87.5 Hyperkalemia; R00.1 Bradycardia, unspecified; E87.1 Hypo-osmolality and hyponatremia; E86.0 Dehydration; G30.9 Alzheimer's disease, unspecified; F02.80 Dementia in other diseases classified elsewhere, unspecified severity, without behavioral disturbance, psychotic disturbance, mood disturbance, and anxiety; E87.6 Hypokalemia; E66.01 Morbid (severe) obesity due to excess calories; E78.5 Hyperlipidemia, unspecified; E03.9 Hypothyroidism, unspecified; B96.1 Klebsiella pneumoniae [K. pneumoniae] as the cause of diseases classified elsewhere; Z68.30 Body mass index [BMI] 30.0-30.9, adult; Z79.4 Long term (current) use of insulin; Z23 Encounter for immunization
CPT/HCPCS: 36415; 71010; 80048; 80053; 81001; 82550; 82553; 82962; 83036; 84439; 84443; 84484; 85025; 87081; 87086; 87181; 90732; 93005; 93306; 93880; Q2036; S5561